=== PATIENT | male | born 1980 | race Caucasian/White ===

== ENCOUNTER 2024-01-19 08:24 | Day surgery (SDC) | payer OTHER, MEDICAID ==
[2024-01-15 09:31] LABS: BASOPHILS # (AUTO) 0.1 X10'3 (0-0.2); BASOPHILS % (AUTO) 0.7 % (0-1); EOSINOPHILS # (AUTO) 0.2 X10'3 (0-0.9); EOSINOPHILS % (AUTO) 1.6 % (0-6); HEMATOCRIT 52.1 % (42.0-52.0); HEMOGLOBIN 17.4 g/dl (14.0-17.9); LYMPHOCYTES # (AUTO) 2.9 X10'3 (1.1-4.8); LYMPHOCYTES % (AUTO) 20.2 % (21-51); MEAN CORPUSCULAR HEMOGLOBIN 29.4 PG (27.0-31.0); MEAN CORPUSCULAR HGB CONC 33.5 g/dL (33.0-36.5); MEAN CORPUSCULAR VOLUME 87.8 FL (78-98); MEAN PLATELET VOLUME 7.1 FL (7.4-10.4); MONOCYTES # (AUTO) 1.1 X10'3 (0-0.9); NEUTROPHILS % (AUTO) 69.5 % (42-75); PLATELET COUNT 294 X10'3 (140-440); RED BLOOD COUNT 5.93 X10'6 (4.70-6.10); RED CELL DISTRIBUTION WIDTH 14.4 % (11.5-14.5); WHITE BLOOD COUNT 14.3 X10'3 (4.5-11.0)
[2024-01-15 09:46] LABS: ALBUMIN 3.3 G/DL (3.4-5.0); ANION GAP 8 (8-16); BLOOD UREA NITROGEN 17 MG/DL (7-18); BUN/CREATININE RATIO 20.5 (10.0-20.0); CALCIUM 9.4 MG/DL (8.5-10.1); CHLORIDE 101 MMOL/L (99-107); CREATININE 0.83 MG/DL (0.60-1.10); GLUCOSE 88 MG/DL (70-104); POTASSIUM 3.9 MMOL/L (3.5-5.1); SODIUM 140 MMOL/L (135-145); TOTAL CARBON DIOXIDE 31.1 MMOL/L (24-32); eGFR > 90 ML/MIN
[2024-01-15 09:50] LABS: APTT 27 SECONDS (22-32); PROTHROMBIN TIME 10.8 SECONDS (9.0-12.0)
[~2024-01-19] VITALS: Ht 170.2 cm; Wt 158.8 kg
[2024-01-19] VITALS (19 sets, daily range): BP systolic 98–152; BP diastolic 55–86; PULSE 96–164; RESP 7–21; TEMP 97.8; O2SAT 94–100
[2024-01-19] MEDS ORDERED: LOSA25TA41 PO (08:46)
[2024-01-19] MEDS ORDERED: APIX5TAB3 PO (08:46)
[2024-01-19] MEDS ORDERED: FLEC50TA28 PO (08:46)
[2024-01-19] MEDS ORDERED: LORA10TA7 (08:46)
[2024-01-19] MEDS ORDERED: METO100T14 PO (08:46)
[2024-01-19] MEDS ORDERED: normal saline 1000ml 1,000 ML IV SCH (08:50)
[2024-01-19 09:14] LABS: BASOPHILS # (AUTO) 0.1 X10'3 (0-0.2); BASOPHILS % (AUTO) 0.7 % (0-1); EOSINOPHILS # (AUTO) 0.1 X10'3 (0-0.9); EOSINOPHILS % (AUTO) 1.1 % (0-6); HEMATOCRIT 53.1 % (42.0-52.0); HEMOGLOBIN 17.6 g/dl (14.0-17.9); LYMPHOCYTES # (AUTO) 2.9 X10'3 (1.1-4.8); MEAN CORPUSCULAR HEMOGLOBIN 29.4 PG (27.0-31.0); MEAN CORPUSCULAR HGB CONC 33.2 g/dL (33.0-36.5); MEAN CORPUSCULAR VOLUME 88.6 FL (78-98); MEAN PLATELET VOLUME 7.5 FL (7.4-10.4); MONOCYTES % (AUTO) 8.2 % (2-12); NEUTROPHILS # (AUTO) 8.4 X10'3 (1.8-7.7); PLATELET COUNT 287 X10'3 (140-440); RED CELL DISTRIBUTION WIDTH 14.5 % (11.5-14.5); WHITE BLOOD COUNT 12.4 X10'3 (4.5-11.0)
[2024-01-19 09:17] LABS: PROTHROMBIN TIME 11.1 SECONDS (9.0-12.0)
[2024-01-19 09:23] LABS: ALBUMIN 3.5 G/DL (3.4-5.0); ANION GAP 6 (8-16); BLOOD UREA NITROGEN 16 MG/DL (7-18); CALCIUM 9.1 MG/DL (8.5-10.1); CHLORIDE 104 MMOL/L (99-107); CHOL/HDL RATIO 5.3 (0.00-4.99); CHOLESTEROL 238 MG/DL (0-200); CREATININE 0.94 MG/DL (0.60-1.10); GLUCOSE 93 MG/DL (70-104); HDL CHOLESTEROL 45 MG/DL (35-60); LDL CHOLESTEROL 164 MG/DL (50-100); POTASSIUM 4.1 MMOL/L (3.5-5.1); SODIUM 141 MMOL/L (135-145); TOTAL CARBON DIOXIDE 30.8 MMOL/L (24-32); TRIGLYCERIDES 117 MG/DL (20-135); eCRCL 94 ML/MIN; eGFR 87 ML/MIN
[2024-01-19] MEDS: MIDAZolam 1mg/ml 10ml vial IV ONE (09:36)
[2024-01-19] MEDS: fentaNYL/PF 50MCG/1 ML 2ML syringe IV ONE (09:37)
[2024-01-19] MEDS: metoprolol tartrate 1mg/ml inj IV ONE (10:16)
[2024-01-19] MEDS ORDERED: DILT240C90 PO (10:34)
== END 2024-01-19 10:55 | disposition home or self-care (01) ==
LOC: SSTAY O 08:24
PROVIDERS: ATTEND Student in an Organized Health Care Education/Training Program
DX: I48.91 Unspecified atrial fibrillation (principal); I10 Essential (primary) hypertension; E78.5 Hyperlipidemia, unspecified; E66.9 Obesity, unspecified; G62.9 Polyneuropathy, unspecified; G47.00 Insomnia, unspecified; M19.90 Unspecified osteoarthritis, unspecified site; Z79.01 Long term (current) use of anticoagulants; Z79.899 Other long term (current) drug therapy; Z68.43 Body mass index [BMI] 50.0-59.9, adult; Z88.8 Allergy status to other drugs, medicaments and biological substances
CPT/HCPCS: 36415; 80048; 80061; 85025; 85610; 85730; 92960; J2250; J3010; J3490; J7030

== ENCOUNTER 2024-09-13 10:55 | Day surgery (SDC) | payer OTHER, MEDICAID ==
[2024-09-07 15:22] LABS: BASOPHILS # (AUTO) 0.1 X10'3 (0-0.2); BASOPHILS % (AUTO) 0.7 % (0-1); EOSINOPHILS # (AUTO) 0.2 X10'3 (0-0.9); EOSINOPHILS % (AUTO) 1.5 % (0-6); HEMATOCRIT 48.7 % (42.0-52.0); HEMOGLOBIN 16.2 g/dl (14.0-17.9); LYMPHOCYTES # (AUTO) 3.4 X10'3 (1.1-4.8); LYMPHOCYTES % (AUTO) 23.5 % (21-51); MEAN CORPUSCULAR HEMOGLOBIN 29.1 PG (27.0-31.0); MEAN CORPUSCULAR HGB CONC 33.4 g/dL (33.0-36.5); MEAN CORPUSCULAR VOLUME 87.2 FL (78-98); MEAN PLATELET VOLUME 7.4 FL (7.4-10.4); MONOCYTES # (AUTO) 0.9 X10'3 (0-0.9); MONOCYTES % (AUTO) 6.2 % (2-12); NEUTROPHILS # (AUTO) 9.9 X10'3 (1.8-7.7); NEUTROPHILS % (AUTO) 68.1 % (42-75); PLATELET COUNT 356 X10'3 (140-440); RED BLOOD COUNT 5.58 X10'6 (4.70-6.10); RED CELL DISTRIBUTION WIDTH 15.1 % (11.5-14.5); WHITE BLOOD COUNT 14.6 X10'3 (4.5-11.0)
[2024-09-07 15:36] LABS: APTT 27 SECONDS (22-32); INR 1.1 INR; PROTHROMBIN TIME 10.8 SECONDS (9.0-12.0)
[2024-09-07 15:39] LABS: ALBUMIN 3.6 G/DL (3.4-5.0); ANION GAP 7 (8-16); BLOOD UREA NITROGEN 16 MG/DL (7-18); BUN/CREATININE RATIO 21.6 (10.0-20.0); CALCIUM 8.9 MG/DL (8.5-10.1); CHLORIDE 106 MMOL/L (99-107); CHOL/HDL RATIO 5.8 (0.00-4.99); CHOLESTEROL 228 MG/DL (0-200); CREATININE 0.74 MG/DL (0.60-1.10); HDL CHOLESTEROL 39 MG/DL (35-60); LDL CHOLESTEROL 149 MG/DL (50-100); POTASSIUM 4.2 MMOL/L (3.5-5.1); SODIUM 140 MMOL/L (135-145); TOTAL CARBON DIOXIDE 27.5 MMOL/L (24-32); TRIGLYCERIDES 243 MG/DL (20-135); eGFR > 90 ML/MIN
[2024-09-07 15:43] LABS: GLUCOSE 89 MG/DL (70-104)
[2024-09-13] VITALS (15 sets, daily range): BP systolic 98–128; BP diastolic 46–84; PULSE 113–146; RESP 9–25; TEMP 97.4; O2SAT 91–98
[~2024-09-13] VITALS: Ht 170.2 cm; Wt 155.6 kg
[~2024-09-13 10:55] MED LIST: APIX5TAB3 PO; DILT240C90 PO; FLEC50TA28 PO; LORA10TA7; LOSA25TA41 PO; METO100T14 PO
[2024-09-13] MEDS ORDERED: ACET-2778 PO (11:34)
[2024-09-13] MEDS ORDERED: CHOL500044 PO (11:34)
[2024-09-13] MEDS ORDERED: DILT240C90 PO (11:34)
[2024-09-13] MEDS ORDERED: MULT-1085 PO (11:34)
[2024-09-13] MEDS: fentaNYL/PF 50MCG/1 ML 2ML syringe IV ONE (12:02)
[2024-09-13] MEDS: MIDAZolam 1mg/ml 10ml vial IV ONE (12:02)
== END 2024-09-13 14:00 | disposition home or self-care (01) ==
LOC: SSTAY O 10:55
PROVIDERS: ATTEND Student in an Organized Health Care Education/Training Program
DX: I48.91 Unspecified atrial fibrillation (principal); I11.9 Hypertensive heart disease without heart failure; I10 Essential (primary) hypertension; M19.90 Unspecified osteoarthritis, unspecified site; G62.9 Polyneuropathy, unspecified; G47.00 Insomnia, unspecified; Z88.8 Allergy status to other drugs, medicaments and biological substances
CPT/HCPCS: 36415; 80048; 80061; 85025; 85610; 85730; 92960; 93005; J2250; J3010; J7030

== ENCOUNTER 2025-02-20 07:56 | Outpatient (CLI) | payer OTHER, MEDICAID ==
[~2025-02-20] VITALS: Ht 170.2 cm; Wt 164.7 kg
[2025-02-20] VITALS (7 sets, daily range): BP systolic 118–150; BP diastolic 70–90; PULSE 72–98; RESP 16–19; O2SAT 98
[~2025-02-20 07:56] MED LIST changes: +ACET-3669 PO; +CHOL500044 PO; -FLEC50TA28 PO; +MULT-1085 PO
[2025-02-20] MEDS ORDERED: regadenoson 0.4mg/5ml syringe IV ONE (08:40)
--- NOTE | 2025-02-20 13:25 | RADIOLOGY REPORT ---
CLINICAL INFORMATION: Atrial fibrillation. TECHNIQUE: 9.3 mCi of technetium 99m sestamibi was infused at rest. Rest SPECT imaging was obtained. Routine protocol for Lexiscan stress study was performed with 0.4 mg of Lexiscan. 39.3 mCi of technetium 99m sestamibi was infused. Stress SPECT imaging was obtained. COMPARISON: CATH CARDIOVERSION on DOS: 01/19/24 FINDINGS: Resting heart rate of 66 BPM increased to maximum rate of 103 BPM. Resting blood pressure of 118/76 increased to 150/84. There were no significant ST-T wave EKG changes. There was no chest pain. There is no evidence of stress induced ischemia or stress dilatation of the left ventricle. TID ratio is 1.12. Wall motion imaging appears normal. Calculated left ventricular ejection fraction is 58%. IMPRESSION: 1. No evidence of stress-induced ischemia. 2. Left ventricular ejection fraction is 58%.
== END 2025-02-20 23:59 | disposition home or self-care (01) ==
LOC: RAD 07:56
PROVIDERS: ATTEND Internal Medicine Interventional Cardiology
DX: I48.91 Unspecified atrial fibrillation (principal)
CPT/HCPCS: 78452; 93017; A9500; J2785